=== PATIENT | male | born 1950 ===

== ENCOUNTER 2018-11-24 07:50 | Day surgery (SDC) | payer MEDICARE, OTHER ==
[~2018-11-24 07:50] MED LIST: Acetaminophen TAB* 325 MG PO PRN
[2018-11-24] MEDS ORDERED: Insulin REGULAR(*) 1 UNITS UNIT ONE (09:46)
[2018-11-24] MEDS ORDERED: fentaNYL* 50 MCG/ML 2 ML VIAL (100 MCG VIAL) ONE (11:08)
[2018-11-24] MEDS ORDERED: Midazolam* 1 MG/ML 5 ML VIAL (5 MG) ONE (11:08)
[2018-11-24] MEDS ORDERED: Buffered Lidocaine 0.9% SYRIN* 5 ML/SYR SYRINGE INTRADERM ONE (11:51)
[2018-11-24 12:22] VITALS: BP 107/57
[2018-11-24] MEDS ORDERED: Lidocaine 2% EPI 1:200000 MPF*10-20 ML VIAL ONE (12:51)
[2018-11-24] MEDS ORDERED: Proparacaine 0.5% OPHTH.SOL* 15 ML BTL ONE (12:51)
[2018-11-24] MEDS ORDERED: Povidone Iodine 5% OPTH* 30 ML BTL ONE (12:51)
[2018-11-24] MEDS ORDERED: Cyclopentolate 1% OPTH.SOL* 2 ML BTL ONE (12:51)
[2018-11-24] MEDS ORDERED: Neomycin/Polymy/Dex OPTH.SUSP* MAXITROL 0.1% 5 ML ONE (12:51)
[2018-11-24] MEDS ORDERED: Ketorolac 0.5% OPHTH (NF) 0.5 % 5 ML BTL ONE (12:51)
[2018-11-24] MEDS ORDERED: acetaZOLAMIDE TAB* 250 MG ONE (12:51)
[2018-11-24] MEDS ORDERED: Lidocaine 1%* 5 ML VIAL ONE (12:51)
--- NOTE | 2018-11-24 16:11 | OP ---
DATE OF OPERATION: 11/24/18 - [facility] DATE OF : 46 SURGEON: Jack Cheung M.D. PREOPERATIVE DIAGNOSIS: Cataract and glaucoma, right eye. POSTOPERATIVE DIAGNOSIS: Cataract and glaucoma, right eye. OPERATIVE PROCEDURE: Extracapsular cataract extraction with intraocular lens implant and iStent, right eye. DESCRIPTION OF PROCEDURE: The patient was brought to the operating room after being given 1/2% Alcaine with epinephrine drops in the preoperative area. The eye was prepped and draped in the usual sterile fashion. Sterile drape and eyelid speculum were placed. Again, topical 1/2% Alcaine with epinephrine was given. A paracentesis incision was made at the 9 o'clock position with the No.75 blade. Clear cornea incision 2.2 x 2.2-mm was created at the 12 o'clock position starting at the anterior limbus using the 2.2-mm keratome. The anterior chamber was irrigated with 0.4 mL of 1% non-preservative intracameral lidocaine and filled with DisCoVisc. A capsulorrhexis was completed using the cystotome and the Utrata forceps. Hydrodissection was performed with balanced salt solution. The lens nucleus was removed with the Phacoemulsification handpiece without incident. Cortex was removed with the irrigation-aspiration handpiece. The capsular bag was re-inflated using DisCoVisc and an [id number] 22.5 implant was inserted with the shooter and oriented to the 11-degree meridian followed by an iStent [id number] inserted into the trabecular mesh work at the 2 o' clock position. The horizontal reference brothers were made with the patient in the seated position in the preoperative area. The irrigation-aspiration handpiece was used to remove all residual DisCoVisc. The eye was refilled with balanced salt solution and the wound checked and found to be watertight. Topical Maxitrol drops were given. [id number]/[facility] #: [id number] [facility] HOSPITALMichelle
== END 2018-11-24 12:29 | disposition home or self-care (01) ==
LOC: OREAST 07:50
PROVIDERS: ATTEND Specialist
DX: H25.11 Age-related nuclear cataract, right eye (principal); H40.1131 Primary open-angle glaucoma, bilateral, mild stage; E10.3293 Type 1 diabetes mellitus with mild nonproliferative diabetic retinopathy without macular edema, bilateral; Z79.4 Long term (current) use of insulin; Z95.0 Presence of cardiac pacemaker; I10 Essential (primary) hypertension; Z85.828 Personal history of other malignant neoplasm of skin; I45.10 Unspecified right bundle-branch block; E78.5 Hyperlipidemia, unspecified; Z87.891 Personal history of nicotine dependence
CPT/HCPCS: A9270-GY; C1783; J2250; J3010; V2787

== ENCOUNTER 2018-12-01 07:37 | Day surgery (SDC) | payer MEDICARE, OTHER ==
[~2018-12-01 07:37] MED LIST changes: +Buffered Lidocaine 0.9% SYRIN* 5 ML/SYR SYRINGE INTRADERM ONE
[2018-12-01] MEDS ORDERED: Midazolam* 1 MG/ML 2 ML VIAL (2 MG) ONE ×2 (09:16→09:44)
[2018-12-01] MEDS ORDERED: Lidocaine 1%* 5 ML VIAL ONE (10:09)
[2018-12-01] MEDS ORDERED: Cyclopentolate 1% OPTH.SOL* 2 ML BTL ONE (10:09)
[2018-12-01] MEDS ORDERED: Lidocaine 2% EPI 1:200000 MPF*10-20 ML VIAL ONE (10:09)
[2018-12-01] MEDS ORDERED: Povidone Iodine 5% OPTH* 30 ML BTL ONE (10:09)
[2018-12-01] MEDS ORDERED: Neomycin/Polymy/Dex OPTH.SUSP* MAXITROL 0.1% 5 ML ONE (10:09)
[2018-12-01] MEDS ORDERED: acetaZOLAMIDE TAB* 250 MG ONE (10:09)
[2018-12-01] MEDS ORDERED: Proparacaine 0.5% OPHTH.SOL* 15 ML BTL ONE (10:09)
[2018-12-01] MEDS ORDERED: Ketorolac 0.5% OPHTH (NF) 0.5 % 5 ML BTL ONE (10:09)
[2018-12-01 10:22] VITALS: BP 132/67
--- NOTE | 2018-12-01 10:31 | OP ---
DATE OF OPERATION: 12/01/2018. DATE OF : 1950. SURGEON: Jack Cheung M.D. PREOPERATIVE DIAGNOSIS: Cataract left eye and glaucoma. POSTOPERATIVE DIAGNOSIS: Cataract left eye and glaucoma. OPERATIVE PROCEDURE: Extracapsular cataract extraction with intraocular lens implant and iStent left eye. PROCEDURE: The patient was brought to the operating room after being given 1/2% Alcaine with epineph rine drops in the preoperative area. The eye was prepped and draped in the usual sterile fashion. S terile drape and eyelid speculum were placed. Again, topical 1/2% Alcaine with epinephrine was given . A paracentesis incision was made at the 3 o'clock position with the No.75 blade. Clear cornea inc ision 2.2 x 2.2-mm was created at the 6 o'clock position starting at the anterior limbus using the 2. 2-mm keratome. The anterior chamber was irrigated with 0.4 mL of 1% non-preservative intracameral li docaine and filled with DisCoVisc. A capsulorrhexis was completed using the cystotome and the Utrata forceps. Hydrodissection was performed with balanced salt solution. The lens nucleus was removed wi th the Phacoemulsification handpiece without incident. Cortex was removed with the irrigation-aspira tion handpiece. The capsular bag was re-inflated using DisCoVisc and an SN6AT3 21.5 implant was inse rted with the shooter, oriented to the 163 degree meridian followed by an iStent inject times two, on e placed at 8 o'clock and the other at 10 o'clock without difficulty. Horizontal reference brothers wer e made with the patient seated in the preoperative area. The irrigation- aspiration handpiece was us ed to remove all residual DisCoVisc. The eye was refilled with balanced salt solution and the wound checked and found to be watertight. Topical Maxitrol drops were given. [id number]/[facility] #: [id number]
== END 2018-12-01 10:30 | disposition home or self-care (01) ==
LOC: OREAST 07:37
PROVIDERS: ATTEND Specialist
DX: H25.12 Age-related nuclear cataract, left eye (principal); H40.1131 Primary open-angle glaucoma, bilateral, mild stage; E10.3293 Type 1 diabetes mellitus with mild nonproliferative diabetic retinopathy without macular edema, bilateral; Z79.4 Long term (current) use of insulin; Z95.0 Presence of cardiac pacemaker; E78.2 Mixed hyperlipidemia; F17.200 Nicotine dependence, unspecified, uncomplicated; I10 Essential (primary) hypertension
CPT/HCPCS: A9270-GY; C1783; J2250; V2787